=== PATIENT | female | born 1935 | race Caucasian/White ===

== ENCOUNTER 2022-03-13 16:19 | Inpatient (IN) | payer MEDICARE, OTHER ==
[2022-03-13 16:49] LABS: #Eosinphils 0.1 10x3/uL (0.0-0.5); #Neutrophils 5.7 10x3/uL (1.5-8.4); %Basophils 0.1 % (0.0-2.0); %Eosinophils 0.7 % (0.0-6.0); %Lymphocytes 14.8 % (18.0-47.0); %Monocytes 12.8 % (0.0-10.0); %Neutrophils 71.4 % (40.0-75.0); Mean Corpuscular HGB CONC 33.3 g/dL (32.0-36.0); Mean Corpuscular Hemoglobin 30.8 pg (27.0-33.0); Mean Corpuscular Volume 92.3 fl (81.6-98.3); Mean Platelet Volume 9.8 fl (7.4-10.4); Platelet Count 229 10x3/uL (150-450); RBC Distribution Width 14.9 % (11.5-14.5); Red Blood Cell (RBC) Count 4.55 10x6/uL (3.90-5.03)
[2022-03-13 17:06] LABS: PTT 23.6 sec (22.0-33.0); Prothrombin Time 10.9 sec (9.5-12.1)
[2022-03-13 17:08] LABS: ALT (SGPT) 10 U/L (8-55); AST (SGOT) 14 U/L (5-34); Albumin 3.5 g/dL (3.4-4.8); Alkaline Phosphatase 48 U/L (40-110); Anion Gap 15 mmol/L (10-20); BUN (Urea Nitrogen) 33 mg/dL (9.8-20.1); Bilirubin, Total 0.7 mg/dL (0.2-1.2); CK (CPK) 19 U/L (29-168); Calc. Creatinine Clearance 0 mL/min (70-130); Carbon Dioxide 22 mmol/L (23-31); Chloride 106 mmol/L (98-107); Estimated GFR 56; Globulin 2.7 g/dL (2.4-3.5); Glucose 126 mg/dL (83-110); Lipase 21 U/L (8-78); Potassium 4.3 mmol/L (3.5-5.1); Protein, Total 6.2 g/dL (5.8-8.1); Sodium 139 mmol/L (136-145)
[2022-03-13] MEDS ORDERED: Pantoprazole 40 MG VIAL ONE ×2 (18:46→18:56)
[2022-03-13] MEDS ORDERED: D5 1/2 NS w/20 mEq KCL 1,000 ML ONE (19:04)
[2022-03-13] MEDS ORDERED: Dextrose 5% in Water 1,000 ML IV PRN (19:55)
[2022-03-13] MEDS ORDERED: Ondansetron PF 4 MG/2 ML Vial IVP PRN (19:55)
[2022-03-13] MEDS ORDERED: Dextrose 50% Abboject 50 ML SYRINGE SLOW IVP PRN (19:55)
[2022-03-13] MEDS ORDERED: Acetaminophen 325 MG TAB PO PRN (19:55)
[2022-03-13] MEDS ORDERED: Calcium Carbonate 500 MG ChewTAB PO PRN (19:55)
[2022-03-13] MEDS ORDERED: HumaLOG 300 UNITS/3 ML VIAL SC PRN (19:56)
[2022-03-13] MEDS ORDERED: Fenofibrate Nanocrystallized 145 MG TAB PO SCH (21:00)
[2022-03-13 22:19] LABS: Hemoglobin 13.4 g/dL (12.0-15.5); Mean Corpuscular HGB CONC 34.1 g/dL (32.0-36.0); Mean Corpuscular Hemoglobin 31.1 pg (27.0-33.0); Mean Corpuscular Volume 91.2 fl (81.6-98.3); Mean Platelet Volume 9.9 fl (7.4-10.4); Platelet Count 219 10x3/uL (150-450); RBC Distribution Width 15.1 % (11.5-14.5); Red Blood Cell (RBC) Count 4.31 10x6/uL (3.90-5.03); White Blood Cell (WBC) Count 8.2 10x3/uL (3.5-10.5)
[2022-03-13] MEDS: Acetaminophen 500 MG TAB PO SCH (22:52)
[2022-03-13] MEDS: ALPRAZolam 0.5 MG TAB PO SCH (22:53)
[2022-03-14 00:13] LABS: MDiff Complete? YES; Platelet Morphology Comment Appears Adequate
[2022-03-14 00:15] LABS: RBC Morphology Normal
[2022-03-14 00:20] LABS: Band 2 % (5-11); Eosinophils 1 % (0-10); Lymphocytes 22 % (21-51); Monocytes 13 % (0-10); Neutrophil 62 % (42-75)
[2022-03-14 03:49] LABS: #Eosinphils 0.1 10x3/uL (0.0-0.5); #Monocytes 1.2 10x3/uL (0.0-1.1); #Neutrophils 4.8 10x3/uL (1.5-8.4); %Basophils 0.3 % (0.0-2.0); %Eosinophils 1.4 % (0.0-6.0); %Lymphocytes 21.8 % (18.0-47.0); %Monocytes 14.9 % (0.0-10.0); %Neutrophils 61.5 % (40.0-75.0); Hemoglobin 14.1 g/dL (12.0-15.5); Mean Corpuscular HGB CONC 33.8 g/dL (32.0-36.0); Mean Corpuscular Hemoglobin 31.1 pg (27.0-33.0); Mean Corpuscular Volume 91.9 fl (81.6-98.3); Platelet Count 205 10x3/uL (150-450); RBC Distribution Width 15.3 % (11.5-14.5); Red Blood Cell (RBC) Count 4.54 10x6/uL (3.90-5.03); White Blood Cell (WBC) Count 7.8 10x3/uL (3.5-10.5)
[2022-03-14 04:04] LABS: Anion Gap 16 mmol/L (10-20); BUN (Urea Nitrogen) 23 mg/dL (9.8-20.1); Calc. Creatinine Clearance 0 mL/min (70-130); Calcium 8.6 mg/dL (7.8-10.44); Carbon Dioxide 20 mmol/L (23-31); Chloride 107 mmol/L (98-107); Estimated GFR 72; Glucose 141 mg/dL (83-110); Potassium 3.9 mmol/L (3.5-5.1); Sodium 139 mmol/L (136-145)
[2022-03-14] MEDS: Lactated Ringer's 1,000 ML IV SCH ×2 (05:04→19:18)
[2022-03-14 06:14] LABS: Bilirubin Neg (Negative); Blood, Urine 150 (Negative); Clarity Cloudy (Clear); Glucose, Urine (Dipstick) Normal (Negative); Ketone, Urine Negative (Negative); Leukocyte 500 (Negative); Nitrite Positive (Negative); Protein, Urine (Dipstick) 30 mg/dl (Neg-Trace); Specific Gravity, Urine 1.015 (1.002-1.036); Urobilinogen Normal mg/dL (Less than 2)
[2022-03-14 06:49] LABS: Bacteria/HPF 4+ HPF (None Seen); Renal Epithelial 0-3 HPF (None Seen); Squamous Epithelial 0-3 HPF (0-3); WBC/HPF 21-50 HPF (0-3)
[2022-03-14 08:00] LABS: SARS-CoV-2 NAA Rapid Test Not Detected (NotDetected)
[2022-03-14] MEDS: Fenofibrate Nanocrystallized 145 MG TAB PO SCH (10:09)
[2022-03-14] MEDS: Metoprolol Tartrate 25 MG TAB PO SCH ×3 (10:09→21:36)
[2022-03-14] MEDS: Escitalopram Oxalate 20 mg Tablet PO SCH (10:09)
[2022-03-14] MEDS: Pantoprazole 40 MG VIAL IVP SCH ×2 (10:10→21:45)
[2022-03-14] MEDS ORDERED: Apixaban 5 MG TAB PO SCH (12:00)
[2022-03-14] MEDS ORDERED: Nitrofurantoin Monohyd/M-Cryst 100 MG CAP PO SCH ×2 (12:00→21:00)
[2022-03-14 12:57] LABS: Hemoglobin A1c 6.4 % (4.0-6.0)
[2022-03-14] MEDS ORDERED: Moisturizing Cream (Eucerin) 113 GM JAR TOP PRN (13:24)
[2022-03-14] MEDS ORDERED: Loperamide HCl 2 MG CAP PO PRN ×2 (13:24)
[2022-03-14] MEDS ORDERED: Artificial Tear Sol 15 ML BOT EA EYE PRN (13:24)
[2022-03-14] MEDS ORDERED: Diphenoxylate HCl/Atropine Tablet PO PRN ×2 (13:24)
[2022-03-14] MEDS ORDERED: Electrolyte Replacement Protocol 1 EACH FS SCH (13:30)
[2022-03-14] MEDS ORDERED: cefTRIAXone\\ROCEPHIN 1 GM in Sodium Chloride 0.9% 100 ML IVPB SCH ×3 (14:00→21:00)
[2022-03-14] MEDS ORDERED: Magnesium 2 GM/50 ML(in water) 2 GM in Premix Bag 1 BAG IVPB SCH (14:00)
[2022-03-14] MEDS ORDERED: Ciprofloxacin 500 MG TAB PO SCH ×2 (18:15→20:00)
[2022-03-14] MEDS: Apixaban 5 MG TAB PO SCH (21:36)
[2022-03-14] MEDS: ALPRAZolam 0.5 MG TAB PO SCH (21:36)
[2022-03-14] MEDS: Acetaminophen 500 MG TAB PO SCH (21:51)
[2022-03-15] MEDS: Lactated Ringer's 1,000 ML IV SCH ×2 (01:46→14:10)
[2022-03-15 05:06] LABS: Magnesium 2.2 mg/dL (1.6-2.6); Phosphorus 2.6 mg/dL (2.3-4.7)
[2022-03-15] MEDS ORDERED: Ciprofloxacin 500 MG TAB PO SCH (06:00)
[2022-03-15] MEDS: Fenofibrate Nanocrystallized 145 MG TAB PO SCH (08:58)
[2022-03-15] MEDS: Metoprolol Tartrate 25 MG TAB PO SCH ×2 (08:59→20:57)
[2022-03-15] MEDS: Escitalopram Oxalate 20 mg Tablet PO SCH (08:59)
[2022-03-15] MEDS: Apixaban 5 MG TAB PO SCH ×2 (09:00→20:51)
[2022-03-15] MEDS: Pantoprazole 40 MG VIAL IVP SCH ×2 (09:01→20:51)
[2022-03-15 09:08] LABS: #Eosinphils 0.1 10x3/uL (0.0-0.5); #Monocytes 0.8 10x3/uL (0.0-1.1); #Neutrophils 5.1 10x3/uL (1.5-8.4); %Basophils 0.1 % (0.0-2.0); %Eosinophils 1.4 % (0.0-6.0); %Lymphocytes 16.5 % (18.0-47.0); %Monocytes 11.1 % (0.0-10.0); %Neutrophils 70.5 % (40.0-75.0); Mean Corpuscular HGB CONC 33.2 g/dL (32.0-36.0); Mean Corpuscular Volume 93.3 fl (81.6-98.3); Mean Platelet Volume 9.8 fl (7.4-10.4); Platelet Count 195 10x3/uL (150-450); RBC Distribution Width 15.2 % (11.5-14.5); Red Blood Cell (RBC) Count 4.19 10x6/uL (3.90-5.03); White Blood Cell (WBC) Count 7.3 10x3/uL (3.5-10.5)
[2022-03-15 09:27] LABS: Anion Gap 11 mmol/L (10-20); BUN (Urea Nitrogen) 10 mg/dL (9.8-20.1); Calc. Creatinine Clearance 0 mL/min (70-130); Calcium 8.7 mg/dL (7.8-10.44); Carbon Dioxide 26 mmol/L (23-31); Chloride 111 mmol/L (98-107); Estimated GFR 77; Glucose 116 mg/dL (83-110); Sodium 144 mmol/L (136-145)
[2022-03-15 12:22] LABS: Campy jejuni + coli by PCR Negative (Negative); STEC Shiga Toxin 1+2 Negative (Negative); Salmonella spp. by PCR Negative (Negative); Shigella spp + EIEC by PCR Negative (Negative)
[2022-03-15 12:25] VITALS: BMI 32.4
[2022-03-15] MEDS ORDERED: Piperacillin/Tazobactam 3.375 GM in Sodium Chloride 0.9% 100 ML IVPB SCH ×2 (15:15→16:00)
[2022-03-15] MEDS: Acetaminophen 500 MG TAB PO SCH (20:51)
[2022-03-15] MEDS: ALPRAZolam 0.5 MG TAB PO SCH (20:52)
[2022-03-15] MEDS: Piperacillin/Tazobactam 3.375 GM in Sodium Chloride 0.9% 100 ML IVPB SCH (20:53)
[2022-03-16] MEDS: Piperacillin/Tazobactam 3.375 GM in Sodium Chloride 0.9% 100 ML IVPB SCH ×3 (04:43→20:47)
[2022-03-16 04:46] LABS: ALT (SGPT) 12 U/L (8-55); AST (SGOT) 12 U/L (5-34); Albumin 2.9 g/dL (3.4-4.8); Alkaline Phosphatase 49 U/L (40-110); Anion Gap 11 mmol/L (10-20); BUN (Urea Nitrogen) 9 mg/dL (9.8-20.1); Bilirubin, Total 0.4 mg/dL (0.2-1.2); Calc. Creatinine Clearance 74 mL/min (70-130); Calcium 8.6 mg/dL (7.8-10.44); Carbon Dioxide 26 mmol/L (23-31); Chloride 112 mmol/L (98-107); Estimated GFR 73; Globulin 2.3 g/dL (2.4-3.5); Glucose 114 mg/dL (83-110); Potassium 4.3 mmol/L (3.5-5.1); Protein, Total 5.2 g/dL (5.8-8.1); Sodium 145 mmol/L (136-145)
[2022-03-16] MEDS: Metoprolol Tartrate 25 MG TAB PO SCH ×2 (09:18→20:47)
[2022-03-16] MEDS: Fenofibrate Nanocrystallized 145 MG TAB PO SCH (09:18)
[2022-03-16] MEDS: Escitalopram Oxalate 20 mg Tablet PO SCH (09:18)
[2022-03-16] MEDS: Pantoprazole 40 MG VIAL IVP SCH ×2 (09:18→20:48)
[2022-03-16] MEDS: Apixaban 5 MG TAB PO SCH ×2 (09:18→20:47)
[2022-03-16 09:34] LABS: #Eosinphils 0.2 10x3/uL (0.0-0.5); #Monocytes 0.5 10x3/uL (0.0-1.1); #Neutrophils 3.6 10x3/uL (1.5-8.4); %Basophils 0.3 % (0.0-2.0); %Eosinophils 2.6 % (0.0-6.0); %Lymphocytes 26.4 % (18.0-47.0); %Monocytes 9.2 % (0.0-10.0); %Neutrophils 61.3 % (40.0-75.0); Hemoglobin 13.6 g/dL (12.0-15.5); Mean Corpuscular HGB CONC 32.9 g/dL (32.0-36.0); Mean Corpuscular Hemoglobin 31.1 pg (27.0-33.0); Mean Corpuscular Volume 94.3 fl (81.6-98.3); Mean Platelet Volume 9.9 fl (7.4-10.4); Platelet Count 213 10x3/uL (150-450); RBC Distribution Width 14.8 % (11.5-14.5); Red Blood Cell (RBC) Count 4.38 10x6/uL (3.90-5.03); White Blood Cell (WBC) Count 5.8 10x3/uL (3.5-10.5)
[2022-03-16] MEDS: Acetaminophen 500 MG TAB PO SCH (20:47)
[2022-03-16] MEDS: ALPRAZolam 0.5 MG TAB PO SCH (20:47)
[2022-03-17] MEDS: Piperacillin/Tazobactam 3.375 GM in Sodium Chloride 0.9% 100 ML IVPB SCH ×3 (04:18→20:02)
[2022-03-17] MEDS: Metoprolol Tartrate 25 MG TAB PO SCH ×2 (08:23→21:04)
[2022-03-17] MEDS: Fenofibrate Nanocrystallized 145 MG TAB PO SCH (08:23)
[2022-03-17] MEDS: Escitalopram Oxalate 20 mg Tablet PO SCH (08:23)
[2022-03-17] MEDS: Apixaban 5 MG TAB PO SCH ×2 (08:23→21:06)
[2022-03-17] MEDS: Pantoprazole 40 MG VIAL IVP SCH ×2 (08:23→21:09)
[2022-03-17 08:54] LABS: #Eosinphils 0.2 10x3/uL (0.0-0.5); #Monocytes 0.5 10x3/uL (0.0-1.1); #Neutrophils 3.3 10x3/uL (1.5-8.4); %Basophils 0.5 % (0.0-2.0); %Eosinophils 3.4 % (0.0-6.0); %Lymphocytes 28.2 % (18.0-47.0); %Monocytes 9.6 % (0.0-10.0); %Neutrophils 57.9 % (40.0-75.0); Hemoglobin 13.6 g/dL (12.0-15.5); Mean Corpuscular HGB CONC 32.9 g/dL (32.0-36.0); Mean Corpuscular Hemoglobin 30.6 pg (27.0-33.0); Mean Corpuscular Volume 93.2 fl (81.6-98.3); Mean Platelet Volume 10.1 fl (7.4-10.4); Platelet Count 207 10x3/uL (150-450); RBC Distribution Width 14.6 % (11.5-14.5); Red Blood Cell (RBC) Count 4.44 10x6/uL (3.90-5.03); White Blood Cell (WBC) Count 5.6 10x3/uL (3.5-10.5)
[2022-03-17] MEDS: ALPRAZolam 0.5 MG TAB PO SCH (21:03)
[2022-03-17] MEDS: Acetaminophen 500 MG TAB PO SCH (21:06)
[2022-03-18] MEDS: Piperacillin/Tazobactam 3.375 GM in Sodium Chloride 0.9% 100 ML IVPB SCH ×2 (04:11→13:19)
[2022-03-18] MEDS: Metoprolol Tartrate 25 MG TAB PO SCH (09:28)
[2022-03-18] MEDS: Apixaban 5 MG TAB PO SCH (09:29)
[2022-03-18] MEDS: Pantoprazole 40 MG VIAL IVP SCH (09:29)
[2022-03-18] MEDS: Fenofibrate Nanocrystallized 145 MG TAB PO SCH (09:29)
[2022-03-18] MEDS: Escitalopram Oxalate 20 mg Tablet PO SCH (09:29)
[2022-03-18 09:40] LABS: #Eosinphils 0.2 10x3/uL (0.0-0.5); #Monocytes 0.4 10x3/uL (0.0-1.1); #Neutrophils 2.9 10x3/uL (1.5-8.4); %Basophils 0.6 % (0.0-2.0); %Eosinophils 3.2 % (0.0-6.0); %Lymphocytes 27.6 % (18.0-47.0); %Monocytes 7.4 % (0.0-10.0); %Neutrophils 60.4 % (40.0-75.0); Hemoglobin 13.5 g/dL (12.0-15.5); Mean Corpuscular HGB CONC 32.5 g/dL (32.0-36.0); Mean Corpuscular Hemoglobin 30.6 pg (27.0-33.0); Mean Corpuscular Volume 94.1 fl (81.6-98.3); Mean Platelet Volume 10.5 fl (7.4-10.4); Platelet Count 219 10x3/uL (150-450); RBC Distribution Width 14.5 % (11.5-14.5); Red Blood Cell (RBC) Count 4.41 10x6/uL (3.90-5.03); White Blood Cell (WBC) Count 4.8 10x3/uL (3.5-10.5)
[2022-03-18 18:21] VITALS: BP 153/69; TEMP 97.2
== END 2022-03-18 18:20 | disposition home or self-care (01) | DRG 378 ==
LOC: CSHERS 16:19 → INTOOBSV 18:20 → CSHERHOLD 18:20 → CSHTELE 03-14 05:30 → OBSVTOIN 03-14 18:04
PROVIDERS: ADMIT Emergency Medicine; ATTEND Internal Medicine
DX: K57.33 Diverticulitis of large intestine without perforation or abscess with bleeding (principal); R44.3 Hallucinations, unspecified; N39.0 Urinary tract infection, site not specified; I48.0 Paroxysmal atrial fibrillation; E74.39 Other disorders of intestinal carbohydrate absorption; K52.9 Noninfective gastroenteritis and colitis, unspecified; E78.5 Hyperlipidemia, unspecified; R73.03 Prediabetes; N18.2 Chronic kidney disease, stage 2 (mild); F41.9 Anxiety disorder, unspecified; F32.A Depression, unspecified; I12.9 Hypertensive chronic kidney disease with stage 1 through stage 4 chronic kidney disease, or unspecified chronic kidney disease; E86.0 Dehydration; M19.90 Unspecified osteoarthritis, unspecified site; Z20.822 Contact with and (suspected) exposure to COVID-19; Z88.1 Allergy status to other antibiotic agents; Z88.0 Allergy status to penicillin; Z79.51 Long term (current) use of inhaled steroids; Z79.01 Long term (current) use of anticoagulants; Z79.899 Other long term (current) drug therapy; Z86.711 Personal history of pulmonary embolism; Z90.49 Acquired absence of other specified parts of digestive tract; Z90.710 Acquired absence of both cervix and uterus; Z98.890 Other specified postprocedural states
CPT/HCPCS: 36415; 36416; 74176; 80048; 80053; 81001; 82274; 82550; 83036; 83605; 83630; 83690; 83735; 84100; 84484; 85025; 85610; 85730; 86850; 86900; 86901; 87077; 87086; 87186; 87324; 87328; 87329; 87449; 87505; 93005; 96374; 96375; C9113; G0378; J0696; J1815; J2543; J3475; J3480; J3490; J7120; U0002

== ENCOUNTER 2023-01-05 15:38 | Emergency (ER) | payer MEDICARE, OTHER ==
[~2023-01-05 15:38] MED LIST: Iopamidol 300 61% 100 ML VIAL FS ONE
[2023-01-05] MEDS ORDERED: Ondansetron PF 4 MG/2 ML Vial ONE (16:41)
[2023-01-05 17:42] LABS: #Eosinphils 0.1 10x3/uL (0.0-0.5); #Monocytes 0.4 10x3/uL (0.0-1.1); #Neutrophils 2.2 10x3/uL (1.5-8.4); %Basophils 0.9 % (0.0-2.0); %Eosinophils 2.3 % (0.0-6.0); %Lymphocytes 19.5 % (18.0-47.0); %Monocytes 12.6 % (0.0-10.0); %Neutrophils 64.1 % (40.0-75.0); Hemoglobin 12.8 g/dL (12.0-15.5); Mean Corpuscular HGB CONC 32.1 g/dL (32.0-36.0); Mean Corpuscular Hemoglobin 30.3 pg (27.0-33.0); Mean Corpuscular Volume 94.3 fl (81.6-98.3); Platelet Count 224 10x3/uL (150-450); RBC Distribution Width 13.6 % (11.5-14.5); Red Blood Cell (RBC) Count 4.23 10x6/uL (3.90-5.03); White Blood Cell (WBC) Count 3.5 10x3/uL (3.5-10.5)
[2023-01-05 17:52] LABS: ALT (SGPT) 8 U/L (8-55); AST (SGOT) 15 U/L (5-34); Albumin 3.4 g/dL (3.4-4.8); Alkaline Phosphatase 59 U/L (40-110); Anion Gap 15 mmol/L (10-20); BUN (Urea Nitrogen) 20 mg/dL (9.8-20.1); Bilirubin, Total 0.5 mg/dL (0.2-1.2); Calc. Creatinine Clearance 0 mL/min (70-130); Calcium 8.5 mg/dL (7.8-10.44); Carbon Dioxide 22 mmol/L (23-31); Chloride 108 mmol/L (98-107); Estimated GFR 68; Globulin 2.8 g/dL (2.4-3.5); Glucose 106 mg/dL (83-110); Lipase 18 U/L (8-78); Magnesium 1.8 mg/dL (1.6-2.6); Protein, Total 6.2 g/dL (5.8-8.1); Sodium 141 mmol/L (136-145)
[2023-01-05 20:18] LABS: Bilirubin Neg (Negative); Blood, Urine 50 (Negative); Clarity Slightly Cloudy (Clear); Glucose, Urine (Dipstick) Normal (Negative); Ketone, Urine Negative (Negative); Leukocyte 100 (Negative); Nitrite Positive (Negative); Protein, Urine (Dipstick) 30 mg/dl (Neg-Trace); Urobilinogen Normal mg/dL (Less than 2)
[2023-01-05 20:40] LABS: Squamous Epithelial 0-3 HPF (0-3)
[2023-01-05 20:41] LABS: Bacteria/HPF 2+ HPF (None Seen)
[2023-01-05] MEDS ORDERED: Cefdinir 300 MG CAP PO SCH (21:00)
== END 2023-01-05 21:29 | disposition home or self-care (01) ==
LOC: CSHERS 15:38
DX: N30.00 Acute cystitis without hematuria (principal); I95.1 Orthostatic hypotension; I48.91 Unspecified atrial fibrillation; E78.5 Hyperlipidemia, unspecified; I10 Essential (primary) hypertension
CPT/HCPCS: 36415; 51701; 71045; 74177; 80053; 81003; 81015; 83605; 83690; 83735; 84484; 85025; 93005; 96361; 96374; J2405; Q9967